=== PATIENT | male | born 1985 | race Caucasian/White ===

== ENCOUNTER 2018-11-09 18:10 | Emergency (ER) | payer MEDICAID ==
[~2018-11-09] VITALS: Ht 172.7 cm; Wt 70.0 kg
[~2018-11-09 18:10] MED LIST: FLO0.4C PO
[2018-11-09 18:27] VITALS: BP 114/80
[2018-11-09 18:43] LABS: CLARITY,URINE CLOUDY (Clear); COLOR,URINE RED (Yellow); GLUCOSE, URINE NEGATIVE (Neg); KETONES,URINE NEGATIVE (Neg); OCCULT BLOOD,URINE LARGE (Neg); UROBILINOGEN,URINE 0.2 E.U/dL (0.2-1.0)
[2018-11-09 18:55] LABS: LEUKOCYTE ESTERASE ,URINE NEGATIVE (Neg); NITRITES, URINE NEGATIVE (Neg); PROTEIN,URINE 30 mg/dl (Neg)
[2018-11-09 18:58] LABS: UA COLLECTION TYPE VOIDED
[2018-11-09 19:05] LABS: BACTERIA,URINE NONE SEEN /HPF (Neg); MUCUS STRANDS MANY /LPF (Neg); RBC,URINE TNTC /HPF (0-2); SQUAMOUS EPITHELIAL CELL,UR NONE SEEN /LPF (FEW); WBC,URINE 0-4 /HPF (0-4)
[2018-11-09] MEDS ORDERED: oxyCODONE/APAP 5-325mg tablet PO ONE (19:55)
[2018-11-09] MEDS ORDERED: OXYC-145 PO (21:05)
== END 2018-11-09 21:23 | disposition home or self-care (01) ==
LOC: ER 18:11
DX: N20.0 Calculus of kidney (principal); Z87.442 Personal history of urinary calculi; Z79.899 Other long term (current) drug therapy
CPT/HCPCS: 74176; 81001; 99284

== ENCOUNTER 2018-11-19 21:38 | Emergency (ER) | payer MEDICAID ==
[~2018-11-19] VITALS: Ht 172.7 cm; Wt 72.7 kg
[~2018-11-19 21:38] MED LIST changes: +OXYC-145 PO
[2018-11-19 21:42] VITALS: BP 117/63
[2018-11-19] MEDS ORDERED: PENI500T2 PO (22:14)
[2018-11-19] MEDS ORDERED: penicillin V potassium 500mg tablet PO ONE (22:15)
== END 2018-11-19 22:30 | disposition home or self-care (01) ==
LOC: ER 21:38
DX: K04.7 Periapical abscess without sinus (principal); Z87.442 Personal history of urinary calculi; Z79.899 Other long term (current) drug therapy
CPT/HCPCS: 41800; 99283

== ENCOUNTER 2019-06-03 16:49 | Emergency (ER) | payer MEDICAID ==
[~2019-06-03] VITALS: Ht 172.7 cm; Wt 54.4 kg
[~2019-06-03 16:49] MED LIST changes: -FLO0.4C PO
[2019-06-03 17:12] VITALS: BP 118/83
[2019-06-03] MEDS ORDERED: ipratropium/albuterol 3ml nebule NEB ONE (17:25)
[2019-06-03] MEDS ORDERED: predniSONE 20 mg tablet PO ONE (17:25)
[2019-06-03] MEDS ORDERED: AMOX-100 PO (17:47)
[2019-06-03] MEDS ORDERED: AMOX500C2 PO (17:50)
[2019-06-03] MEDS ORDERED: AZIT500T PO (17:50)
[2019-06-03] MEDS ORDERED: ALBU8HFA PO (17:52)
[2019-06-03] MEDS ORDERED: PRED20TA PO (17:55)
== END 2019-06-03 18:02 | disposition home or self-care (01) ==
LOC: ER 16:49
DX: J40 Bronchitis, not specified as acute or chronic (principal); K08.89 Other specified disorders of teeth and supporting structures; J18.9 Pneumonia, unspecified organism; Z87.442 Personal history of urinary calculi; Z79.899 Other long term (current) drug therapy
CPT/HCPCS: 71045; 99283; J7512; 94760

== ENCOUNTER 2019-11-16 13:21 | Emergency (ER) | payer MEDICAID ==
[~2019-11-16] VITALS: Ht 172.7 cm; Wt 70.5 kg
[2019-11-16 14:15] LABS: BASOPHILS % (AUTO) 0.4 % (0-1); EOSINOPHILS # (AUTO) 0.1 X10'3 (0-0.9); EOSINOPHILS % (AUTO) 1.5 % (0-6); HEMATOCRIT 42.7 % (42.0-52.0); HEMOGLOBIN 14.7 g/dl (14.0-17.9); LYMPHOCYTES # (AUTO) 1.7 X10'3 (1.1-4.8); LYMPHOCYTES % (AUTO) 34.2 % (21-51); MEAN CORPUSCULAR HEMOGLOBIN 31.7 PG (27.0-31.0); MEAN CORPUSCULAR HGB CONC 34.5 g/dL (33.0-36.5); MEAN PLATELET VOLUME 8.6 FL (7.4-10.4); MONOCYTES # (AUTO) 0.4 X10'3 (0-0.9); MONOCYTES % (AUTO) 8.7 % (2-12); NEUTROPHILS # (AUTO) 2.8 X10'3 (1.8-7.7); NEUTROPHILS % (AUTO) 55.2 % (42-75); PLATELET COUNT 222 X10'3 (140-440); RED BLOOD COUNT 4.64 X10'6 (4.70-6.10); RED CELL DISTRIBUTION WIDTH 12.4 % (11.5-14.5); WHITE BLOOD COUNT 5.1 X10'3 (4.5-11.0)
[2019-11-16 14:30] LABS: ALANINE AMINOTRANSFERASE 16 U/L (12-78); ALBUMIN 4.4 G/DL (3.4-5.0); ALBUMIN/GLOBULIN RATIO 1.3 (1.1-1.5); ALKALINE PHOSPHATASE 72 IU/L (46-116); ANION GAP 8 (8-16); ASPARTATE AMINO TRANSFERASE 20 U/L (10-37); BILIRUBIN,TOTAL 0.5 MG/DL (0.1-1.0); BLOOD UREA NITROGEN 11 MG/DL (7-18); BUN/CREATININE RATIO 11.3 (5.4-32.0); CALCIUM 8.8 MG/DL (8.5-10.1); CHLORIDE 103 MMOL/L (99-107); CREATININE 0.97 MG/DL (0.60-1.10); GLUCOSE 95 MG/DL (70-104); POTASSIUM 3.8 MMOL/L (3.5-5.1); SODIUM 139 MMOL/L (135-145); TOTAL CARBON DIOXIDE 27.8 MMOL/L (24-32); TOTAL PROTEIN 7.8 G/DL (6.4-8.2); eGFR 90 ML/MIN
[2019-11-16] MEDS ORDERED: normal saline 1000ML IV soln IVB ONE (14:35)
[2019-11-16] MEDS ORDERED: ketorolac tromethamine 15mg/ml inj. IV ONE (14:35)
[2019-11-16 15:16] LABS: CLARITY,URINE CLEAR (Clear); COLOR,URINE STRAW (Yellow); GLUCOSE, URINE NEGATIVE (Neg); KETONES,URINE NEGATIVE (Neg); LEUKOCYTE ESTERASE ,URINE NEGATIVE (Neg); NITRITES, URINE NEGATIVE (Neg); OCCULT BLOOD,URINE NEGATIVE (Neg); PH,URINE 7.5 (4.8-8.0); PROTEIN,URINE NEGATIVE (Neg); UROBILINOGEN,URINE 0.2 E.U/dL (0.2-1.0)
[2019-11-16 15:18] LABS: UA COLLECTION TYPE CLN CATCH MIDSTREAM
[2019-11-16 15:56] VITALS: BP 117/72
== END 2019-11-16 15:53 | disposition home or self-care (01) ==
LOC: ER 13:22
DX: M54.5 Low back pain (principal); R31.9 Hematuria, unspecified; R10.9 Unspecified abdominal pain; F17.200 Nicotine dependence, unspecified, uncomplicated; Z87.442 Personal history of urinary calculi; Z79.899 Other long term (current) drug therapy; R30.0 Dysuria
CPT/HCPCS: 36415; 76775; 80053; 81003; 85025; 96374; 99284; J1885; J7030

== ENCOUNTER 2020-12-22 09:51 | Emergency (ER) | payer MEDICAID ==
[~2020-12-22] VITALS: Ht 175.3 cm; Wt 68.2 kg
[2020-12-22 09:58] VITALS: BP 138/68
[2020-12-22] MEDS ORDERED: LIDOcaine 40mg/ml topical solution MM ONE (10:10)
[2020-12-22] MEDS ORDERED: AMOX-422 PO (10:19)
[2020-12-22] MEDS ORDERED: LIDOCAINE 2% 5 ML JELLY.ML. tube MM ONE (10:35)
== END 2020-12-22 11:29 | disposition home or self-care (01) ==
LOC: ER 09:51
DX: K04.7 Periapical abscess without sinus (principal); K02.9 Dental caries, unspecified; K08.89 Other specified disorders of teeth and supporting structures; Z87.442 Personal history of urinary calculi; Z79.2 Long term (current) use of antibiotics; Z79.899 Other long term (current) drug therapy
CPT/HCPCS: 41800; 99284

== ENCOUNTER 2021-05-15 02:12 | Emergency (ER) | payer MEDICAID ==
[~2021-05-15] VITALS: Ht 172.7 cm; Wt 52.9 kg
[2021-05-15] MEDS ORDERED: amox tr/potassium clavulanate 875/125mg TAB PO ONE (02:45)
[2021-05-15] MEDS ORDERED: AMOX-422 PO (02:46)
[2021-05-15 03:16] VITALS: BP 119/74
== END 2021-05-15 03:19 | disposition home or self-care (01) ==
LOC: ER 02:13
DX: K02.9 Dental caries, unspecified (principal); K08.89 Other specified disorders of teeth and supporting structures; Z87.442 Personal history of urinary calculi; Z79.2 Long term (current) use of antibiotics; Z79.899 Other long term (current) drug therapy
CPT/HCPCS: 99283

== ENCOUNTER 2022-03-03 19:32 | Emergency (ER) | payer MEDICAID ==
[~2022-03-03] VITALS: Ht 172.7 cm; Wt 68.2 kg
[2022-03-03 20:11] VITALS: BP 139/73
[2022-03-03] MEDS ORDERED: tetanus & diphtheria toxoid (Td) vaccine 0.5ml IMVAC ONE (21:05)
[2022-03-03] MEDS ORDERED: TETanus/Pertussis (Acell)/Diphther VAC/PF (Tdap-Adult) 0.5ml syringe IMVAC ONE (21:10)
== END 2022-03-03 21:57 | disposition home or self-care (01) ==
LOC: ER 19:33
DX: S61.211A Laceration without foreign body of left index finger without damage to nail, initial encounter (principal); Z87.442 Personal history of urinary calculi; Z79.899 Other long term (current) drug therapy; W45.8XXA Other foreign body or object entering through skin, initial encounter; Y93.89 Activity, other specified; Y92.89 Other specified places as the place of occurrence of the external cause; Y99.8 Other external cause status
CPT/HCPCS: 12001; 90471; 90715; 99283

== ENCOUNTER 2023-05-20 02:14 | Emergency (ER) | payer SELFPAY ==
[~2023-05-20] VITALS: Ht 172.7 cm; Wt 70.5 kg
[2023-05-20 02:19] VITALS: TEMP 98.1
[2023-05-20 02:32] LABS: BASOPHILS % (AUTO) 0.5 % (0-1); EOSINOPHILS # (AUTO) 0.2 X10'3 (0-0.9); EOSINOPHILS % (AUTO) 1.9 % (0-6); HEMATOCRIT 43.3 % (42.0-52.0); HEMOGLOBIN 15.2 g/dl (14.0-17.9); MEAN CORPUSCULAR HEMOGLOBIN 31.4 PG (27.0-31.0); MEAN CORPUSCULAR VOLUME 89.8 FL (78-98); MEAN PLATELET VOLUME 8.4 FL (7.4-10.4); MONOCYTES # (AUTO) 0.7 X10'3 (0-0.9); MONOCYTES % (AUTO) 8.6 % (2-12); NEUTROPHILS # (AUTO) 3.9 X10'3 (1.8-7.7); PLATELET COUNT 237 X10'3 (140-440); RED BLOOD COUNT 4.82 X10'6 (4.70-6.10); RED CELL DISTRIBUTION WIDTH 12.9 % (11.5-14.5); WHITE BLOOD COUNT 7.8 X10'3 (4.5-11.0)
[2023-05-20 02:45] LABS: ALANINE AMINOTRANSFERASE 28 U/L (12-78); ALBUMIN 4.6 G/DL (3.4-5.0); ALBUMIN/GLOBULIN RATIO 1.3 (1.1-1.5); ALKALINE PHOSPHATASE 94 IU/L (46-116); ANION GAP 8 (8-16); ASPARTATE AMINO TRANSFERASE 24 U/L (10-37); BILIRUBIN,TOTAL 0.4 MG/DL (0.1-1.0); BLOOD UREA NITROGEN 16 MG/DL (7-18); BUN/CREATININE RATIO 14.7 (10.0-20.0); CALCIUM 8.9 MG/DL (8.5-10.1); CHLORIDE 100 MMOL/L (99-107); CREATININE 1.09 MG/DL (0.60-1.10); GLUCOSE 112 MG/DL (70-104); POTASSIUM 3.5 MMOL/L (3.5-5.1); SODIUM 138 MMOL/L (135-145); TOTAL CARBON DIOXIDE 30.5 MMOL/L (24-32); TOTAL PROTEIN 8.2 G/DL (6.4-8.2); eCRCL 92 ML/MIN; eGFR 77 ML/MIN
[2023-05-20 02:53] LABS: PRO BRAIN NATRIURETIC PEPTIDE < 30 PG/ML (0-125)
[2023-05-20 03:06] VITALS: BP 130/62; PULSE 72; RESP 16; O2SAT 97
== END 2023-05-20 03:11 | disposition home or self-care (01) ==
LOC: ER 02:15
DX: F41.0 Panic disorder [episodic paroxysmal anxiety] (principal); Z79.899 Other long term (current) drug therapy
CPT/HCPCS: 36415; 80053; 83880; 84484; 85025; 93005; 99284

== ENCOUNTER 2023-09-01 13:55 | Emergency (ER) | payer SELFPAY ==
[~2023-09-01] VITALS: Ht 172.7 cm; Wt 68.0 kg
[2023-09-01 14:31] LABS: BASOPHILS % (AUTO) 0.4 % (0-1); EOSINOPHILS # (AUTO) 0.1 X10'3 (0-0.9); EOSINOPHILS % (AUTO) 2.1 % (0-6); HEMATOCRIT 42.5 % (42.0-52.0); HEMOGLOBIN 14.4 g/dl (14.0-17.9); LYMPHOCYTES # (AUTO) 1.7 X10'3 (1.1-4.8); LYMPHOCYTES % (AUTO) 30.9 % (21-51); MEAN CORPUSCULAR HEMOGLOBIN 30.9 PG (27.0-31.0); MEAN CORPUSCULAR VOLUME 91.1 FL (78-98); MEAN PLATELET VOLUME 8.8 FL (7.4-10.4); MONOCYTES # (AUTO) 0.5 X10'3 (0-0.9); MONOCYTES % (AUTO) 8.5 % (2-12); NEUTROPHILS # (AUTO) 3.1 X10'3 (1.8-7.7); NEUTROPHILS % (AUTO) 58.1 % (42-75); PLATELET COUNT 223 X10'3 (140-440); RED BLOOD COUNT 4.67 X10'6 (4.70-6.10); RED CELL DISTRIBUTION WIDTH 12.9 % (11.5-14.5); WHITE BLOOD COUNT 5.4 X10'3 (4.5-11.0)
[2023-09-01 14:49] LABS: ALBUMIN 4.2 G/DL (3.4-5.0); ANION GAP 9 (8-16); BLOOD UREA NITROGEN 11 MG/DL (7-18); BUN/CREATININE RATIO 12.2 (10.0-20.0); CALCIUM 8.4 MG/DL (8.5-10.1); CHLORIDE 103 MMOL/L (99-107); GLUCOSE 93 MG/DL (70-104); POTASSIUM 3.7 MMOL/L (3.5-5.1); PRO BRAIN NATRIURETIC PEPTIDE < 30 PG/ML (0-125); SODIUM 139 MMOL/L (135-145); TOTAL CARBON DIOXIDE 27.3 MMOL/L (24-32); eCRCL 110 ML/MIN; eGFR > 90 ML/MIN
[2023-09-01 16:48] VITALS: BP 102/68; PULSE 64; RESP 15; TEMP 98.3; O2SAT 100
== END 2023-09-01 18:31 | disposition left against medical advice (07) ==
LOC: ER 13:55
DX: R06.02 Shortness of breath (principal); Z53.21 Procedure and treatment not carried out due to patient leaving prior to being seen by health care provider
CPT/HCPCS: 36415; 71045; 80048; 83880; 84484; 85025; 93005

== ENCOUNTER 2024-02-03 02:32 | Emergency (ER) | payer MEDICAID ==
[~2024-02-03] VITALS: Ht 175.3 cm; Wt 150.0 kg
[2024-02-03 04:46] LABS: BILIRUBIN,URINE NEGATIVE (Neg); CLARITY,URINE CLEAR (Clear); COLOR,URINE YELLOW (Yellow); GLUCOSE, URINE NEGATIVE (Neg); KETONES,URINE NEGATIVE (Neg); LEUKOCYTE ESTERASE ,URINE NEGATIVE (Neg); NITRITES, URINE NEGATIVE (Neg); OCCULT BLOOD,URINE NEGATIVE (Neg); PH,URINE 6.5 (4.8-8.0); PROTEIN,URINE NEGATIVE (Neg); UROBILINOGEN,URINE 0.2 E.U/dL (0.2-1.0)
[2024-02-03 04:51] LABS: UA COLLECTION TYPE NON-SPECIFIED
[2024-02-03 05:04] LABS: URINE AMPHETAMINE SCREEN NEGATIVE (Neg); URINE BARBITUATE SCREEN NEGATIVE (Neg); URINE BENZODIAZEPINES SCREEN NEGATIVE (Neg); URINE CANNABINOID SCREEN NEGATIVE (Neg); URINE COCAINE SCREEN NEGATIVE (Neg); URINE METHADONE SCREEN NEGATIVE (Neg); URINE OPIATE SCREEN NEGATIVE (Neg); URINE PHENCYCLIDINE SCREEN NEGATIVE (Neg)
[2024-02-03] MEDS: aspirin 81mg tab.chew PO ONE (05:32)
[2024-02-03 05:37] VITALS: BP 118/68; PULSE 77; RESP 16; TEMP 98.1; O2SAT 98
== END 2024-02-03 05:39 | disposition home or self-care (01) ==
LOC: ER 02:33
DX: R20.2 Paresthesia of skin (principal); F41.9 Anxiety disorder, unspecified; Z87.442 Personal history of urinary calculi; Z79.899 Other long term (current) drug therapy
CPT/HCPCS: 80305; 81003; 99283

== ENCOUNTER 2024-04-14 16:19 | Emergency (ER) | payer SELFPAY ==
[2024-04-14 16:28] VITALS: BP 198/60; PULSE 87; RESP 18; TEMP 97.2; O2SAT 100
== END 2024-04-14 18:33 | disposition left against medical advice (07) ==
LOC: ER 16:20
DX: F41.9 Anxiety disorder, unspecified (principal); Z53.21 Procedure and treatment not carried out due to patient leaving prior to being seen by health care provider

== ENCOUNTER 2024-11-19 02:42 | Emergency (ER) | payer BC ==
[~2024-11-19] VITALS: Ht 172.7 cm; Wt 69.8 kg
--- NOTE | 2024-11-19 03:06 | ELECTROCARDIOGRAPH REPORT ---
[facility] Test Date: 2024-11-19 Test Time: 02:49:25 Pat Name: SHAMEKA COX Department: EMERGENCY ROOM Patient ID: [id number] Room: Gender: M Manager Database: DOROTHEA BARRY : 1985 Requested By: LIZET SIERRA Order Number: [id number] Reading MD: Measurements Intervals [place] Rate: 78 P: 91 ND: 178 QRS: 213 QRSD: 118 T: 25 QT: 398 QTc: 454 Interpretive Statements Sinus rhythm Nonspecific intraventricular conduction delay ST elev, probable normal early repol pattern Baseline wander in lead(s) V6 Please click the below link to view image of tracing.
--- NOTE | 2024-11-19 03:26 | Physician Documentation ---
History of Present Illness ~ Chief Complaint: Palpitations Stated Complaint: ANXIETY Time Seen by MD: 03:14 Primary Medical Doctor: Ricardo BOLAÑOS This is a 39-year-old male presenting for an unusual sensation in his chest. Patient states that this happened to him from time to time sometimes when he is dozing off to go to sleep. He states that he usually works until midnight and then he came home tonight and started watching a movie with his daughter. Prior to this he had a little bit of anxiety and took some of his Atarax that he has as needed. He sat down to watch a movie with his daughter when he started to doze off. He suddenly felt this strain sensation in his chest kind of like a racing heart. It woke him up and he got very concerned. He denies any chest pain but does endorse some tightness in his chest. Otherwise denies any shortness of breath, nausea, dizziness or any other associated symptoms. Medication Reconciliation Allergies: Coded Allergies: No Known Allergies (Unverified , 11/19/24) Scheduled Oxycodone HCl/Acetaminophen (Percocet 5-325 mg Tablet), 1 TAB PO Q12H Past Medical History Past Medical History: No Pertinent History, Kidney Stones, Anxiety Past Surgical History: no surgical history Alcohol Use: None Drug Use: none Lives with: Family Lives In: Home Occupation: employed Review of Systems All Other Systems at this time: Reviewed and Negative Physical Exam Vital Signs: Temperature: 97.7, Source: Temporal, Heart Rate: 76, Respiratory Rate: 16, BP: 125/74, Pulse Oximetry: 100, Weight: 69.800 Oxygen Flow Rate: 0 Physical Exam I have reviewed the triage vitals. CONST: Well developed and well nourished. In no acute distress HENT: Head Atraumatic EYES: Pupils are equal, round and reactive to light. Normal conjunctiva NECK: Normal range of motion. Supple. CARDIO: Normal rate and regular rhythm. No murmurs, rubs, or gallops. S1, S2. PULM/CHEST: No respiratory distress. Lungs clear to auscultation. No wheeze ABD: Soft and nontender. Nondistended. Bowel sounds normal. No guarding. : Exam deferred MSK: No edema. No deformity. NEURO: Alert and oriented to person, place and time. Moving all extremities SKIN: Warm and dry. PSYCH: Normal mood and affect. Good eye contact. Progress Results/Orders Results/Orders Completed Orders - LIZET SIERRA MD Electrocardiogram (11/19/24 03:05) Cbc/Diff (11/19/24 03:23) MG (11/19/24 03:23) BMP (11/19/24 03:23) Hs Troponin I W Calculations (11/19/24 03:23) Vital Signs 11/19/24 11/19/24 02:56 03:22 Temp 97.7 Pulse 76 Resp 16 16 B/P (MAP) 125/74 Pulse Ox 100 O2 Flow Rate 0 Laboratory Tests Test 11/19/24 03:30 White Blood Count 5.6 Red Blood Count 4.48 L Hemoglobin 13.7 L Hematocrit 38.6 L Mean Corpuscular Volume 86.3 Mean Corpuscular Hemoglobin 30.6 Mean Corpuscular Hemoglobin Concent 35.5 Red Cell Distribution Width 13.1 Platelet Count 251 Mean Platelet Volume 8.0 Neutrophils (%) (Auto) 61.0 Lymphocytes (%) (Auto) 28.8 Monocytes (%) (Auto) 8.5 Eosinophils (%) (Auto) 1.2 Basophils (%) (Auto) 0.5 Neutrophils # (Auto) 3.4 Lymphocytes # (Auto) 1.6 Monocytes # (Auto) 0.5 Eosinophils # (Auto) 0.1 Basophils # (Auto) 0.0 CBC Comment Sodium Level 139 Potassium Level 3.6 Chloride Level 104 Carbon Dioxide Level 29.6 Anion Gap 5 L Blood Urea Nitrogen 9 Creatinine 1.20 H Estimated GFR/1.73 m2 68 BUN/Creatinine Ratio 7.5 L Glucose Level 97 Calcium Level 8.5 Magnesium Level 2.0 Troponin I High Sensitivity 4 Albumin 4.3 Chemistry Comments EKG/XRAY/CT/US/VASC/MRI EKG : Additional Comment EKG as interpreted by ED indicating normal sinus rhythm with a rate of 78 beats per minute, normal axis, no ischemia Medical Decision Making Additional Information 39-year-old male presenting with anxiety and palpitations. His workup is negative aside from a minimally elevated creatinine level of 1.2. The patient states that he takes creatinine and this would explain this slight elevation of the creatinine. His remainder of his lab work is otherwise unremarkable. I believe that his symptoms were likely related to some anxiety and also lack of sleep in addition to the fact that he drank some energy drinks yesterday. The patient was monitored in the ED on the property assessment monitor and remained asymptomatic with a normal cardiac rhythm the entire time. EKG was also unremarkable. At this point in time he is stable and safe to be discharged home. I advised the patient to drink plenty of fluids and get more sleep and to monitor symptoms for recurrence. Should they keep recurring he was advised that he needs to follow up with a order fulfillment specialist. Return to the ED with any acutely worsening symptoms. Departure Disposition: HOME / SELF CARE / HOMELESS Impression: Primary Impression: Palpitations Additional Impression: Anxiety Condition: Stable Discharge Instructions: Palpitations, [id number] Referrals: NO PRIMARY CARE PROVIDER (PCP) Signature Scribe Signature: 1 Attestation: 1 LIZET SIERRA MD Nov 19, 2024 03:26
[2024-11-19 03:46] LABS: MEAN PLATELET VOLUME 8.0 FL (7.4-10.4); RED CELL DISTRIBUTION WIDTH 13.1 % (11.5-14.5)
[2024-11-19 03:50] LABS: CREATININE 1.20 MG/DL (0.60-1.10); TOTAL CARBON DIOXIDE 29.6 MMOL/L (24-32); eCRCL 82 ML/MIN; eGFR 68 ML/MIN
[2024-11-19 04:30] VITALS: BP 116/68; PULSE 72; RESP 16; TEMP 97.7; O2SAT 99
== END 2024-11-19 04:32 | disposition home or self-care (01) ==
LOC: ER 02:44
DX: R00.2 Palpitations (principal); F41.9 Anxiety disorder, unspecified; R06.02 Shortness of breath; Z79.899 Other long term (current) drug therapy
CPT/HCPCS: 36415; 80048; 83735; 84484; 85025; 93005; 99284

== ENCOUNTER 2025-02-11 01:02 | Emergency (ER) | payer BC ==
[~2025-02-11] VITALS: Ht 175.3 cm; Wt 73.0 kg
--- NOTE | 2025-02-11 01:22 | RADIOLOGY REPORT ---
CHEST RADIOGRAPH Indication: CP Technique: 1 view Comparison: DI CHEST,SINGLE VIEW on DOS: 09/01/23, CHEST,SINGLE VIEW on DOS: 06/03/19 FINDINGS: Lines and Tubes: None. Lungs/Pleura: No focal consolidation, pleural effusion or pneumothorax. Soft tissue summation of the right lower lung. Cardiomediastinum: Unremarkable. Other: No acute osseous abnormality. IMPRESSION: 1. No acute cardiopulmonary abnormality.
--- NOTE | 2025-02-11 01:26 | Physician Documentation ---
History of Present Illness ~ Chief Complaint: Chest Pain Stated Complaint: CHEST DISCOMFORT X 30 MIN Time Seen by MD: 01:10 Primary Medical Doctor: Ricardo BOLAÑOS Patient presents to the emergency room with chief complaint of chest tightness. He was seen here earlier this month with similar complaints. He states he came home from working gone into bed and felt some palpitations and tightness therefore came in to be evaluated. Patient does have history of anxiety. He does have a primary care but denies any cardiac workup previously. He does not smoke and denies history of blood pressure cholesterol or diabetes but does state that has mother was diagnosed with coronary artery disease in her 60s. Patient's symptoms have resolved. Medication Reconciliation Allergies: Coded Allergies: No Known Allergies (Unverified , 02/11/25) Scheduled Oxycodone HCl/Acetaminophen (Percocet 5-325 mg Tablet), 1 TAB PO Q12H Past Medical History Past Medical History: No Pertinent History, Kidney Stones, Anxiety Past Surgical History: no surgical history Alcohol Use: None Drug Use: none Lives with: Family Lives In: Home Occupation: employed Review of Systems ROS All review of systems negative except as per HPI Physical Exam Vital Signs: Heart Rate: 77, Respiratory Rate: 15, BP: 132/79, Pulse Oximetry: 99, Weight: 73.000 Physical Exam General: Patient is awake, alert, oriented x4 in no acute distress. Anxious Head: Normocephalic and atraumatic. Eyes: Conjunctival normal. EOMI. PERRL. ENT: Mucous membranes moist. Neck: Supple, trachea is midline. Chest: Clear to auscultation bilaterally without rales, rhonchi, or wheezes. There is no accessory muscle use or retractions. Cardiac: RRR without murmurs, gallops, or rubs. Abd: Soft, nondistended, nontender, with normoactive bowel sounds. No guarding, rebound, or rigidity. Extremities: Normal strength. Normal range of motion. No deformities or edema. No calf tenderness to palpation Progress Results/Orders Results/Orders Orders - ADAL CHANDRA MD Chest,Single View (02/11/25 01:12) Monitor (02/11/25 01:07) Saline Lock (02/11/25 01:07) Oxygen (02/11/25 01:07) BMP (02/11/25 01:07) PBNP (02/11/25 01:07) Electrocardiogram (02/11/25 01:07) Hs Troponin I W Calculations (02/11/25 03:07) Hs Troponin I W Calculations (02/11/25 04:07) Completed Orders - ADAL CHANDRA MD Chest,Single View (02/11/25 01:12) Cbc/Diff (02/11/25 01:07) Hs Troponin I W Calculations (02/11/25 01:07) Vital Signs 02/11/25 02/11/25 02/11/25 01:04 01:17 01:49 Pulse 77 71 Resp 15 10 12 B/P (MAP) 132/79 143/88 (106) Pulse Ox 99 98 Laboratory Tests Test 02/11/25 01:17 White Blood Count 5.9 Red Blood Count 4.71 Hemoglobin 14.3 Hematocrit 40.7 L Mean Corpuscular Volume 86.6 Mean Corpuscular Hemoglobin 30.4 Mean Corpuscular Hemoglobin Concent 35.1 Red Cell Distribution Width 12.5 Platelet Count 245 Mean Platelet Volume 8.2 Neutrophils (%) (Auto) 50.5 Lymphocytes (%) (Auto) 37.6 Monocytes (%) (Auto) 8.9 Eosinophils (%) (Auto) 2.5 Basophils (%) (Auto) 0.5 Neutrophils # (Auto) 3.0 Lymphocytes # (Auto) 2.2 Monocytes # (Auto) 0.5 Eosinophils # (Auto) 0.1 Basophils # (Auto) 0.0 CBC Comment Sodium Level 141 Potassium Level 3.5 Chloride Level 103 Carbon Dioxide Level 30.5 Anion Gap 8 Blood Urea Nitrogen 7 Creatinine 1.21 H Estimated GFR/1.73 m2 67 BUN/Creatinine Ratio 5.8 L Glucose Level 90 Calcium Level 8.6 Troponin I High Sensitivity 4 Albumin 4.3 Chemistry Comments EKG/XRAY/CT/US/VASC/MRI EKG : Additional Comment EKG interpreted by myself shows time of 0106, rate 72, sinus rhythm, borderline right axis deviation, nonspecific ST-T changes Chest X-Ray : Additional Comments Exam: CHEST,SINGLE VIEW CHEST RADIOGRAPH Indication: CP Technique: 1 view Comparison: DI CHEST,SINGLE VIEW on DOS: 09/01/23, CHEST,SINGLE VIEW on DOS: 06/03/19 FINDINGS: Lines and Tubes: None. Lungs/Pleura: No focal consolidation, pleural effusion or pneumothorax. Soft tissue summation of the right lower lung. Cardiomediastinum: Unremarkable. Other: No acute osseous abnormality. IMPRESSION: 1. No acute cardiopulmonary abnormality. Medical Decision Making Additional information obtaine: old records Findings Patient presents to the emergency room with chest discomfort as per HPI. Differentials include but are not limited to anxiety ACS pulmonary embolism heart failure therefore emergent labs and imaging indicated. Labs and imaging are reassuring. Patient's heart score is reassuring. The need to follow up with his doctor discussed. Patient is currently asymptomatic and he had not feel he requires investigation into pulmonary embolism. Heart Score: 0 Differential Dx:Considerations: Include: angina, aortic dissection, chest wall pain, cholelithiasis, CHF, costochondritis, esophageal reflux/spasm, gastritis, herpes zoster, myocardial infarction, pericarditis, pleuritis, pancreatitis, pneumonia, pneumothorax, pulmonary embolus, other Departure Disposition: 01 HOME / SELF CARE / HOMELESS Impression: Primary Impression: Chest pain Condition: Improved Discharge Instructions: Nonspecific Chest Pain, Adult Additional Instructions: Regarding your palpitations; ask your doctor for possible Holter monitor. Regarding your chest pain; ask your doctor about possible stress test Referrals: NO PRIMARY CARE PROVIDER (PCP) Signature Scribe Signature: No scribe Attestation: The note accurately reflects work and decisions made by me.Adal Chandra MD 02/11/25 02:06 ADAL CHANDRA MD Feb 11, 2025 01:26
[2025-02-11 01:38] LABS: MEAN PLATELET VOLUME 8.2 FL (7.4-10.4); RED CELL DISTRIBUTION WIDTH 12.5 % (11.5-14.5)
[2025-02-11 01:57] LABS: CREATININE 1.21 MG/DL (0.60-1.10); TOTAL CARBON DIOXIDE 30.5 MMOL/L (24-32); eCRCL 84 ML/MIN; eGFR 67 ML/MIN
[2025-02-11 02:05] LABS: PRO BRAIN NATRIURETIC PEPTIDE < 30 PG/ML (0-125)
[2025-02-11 02:12] VITALS: BP 119/72; PULSE 78; RESP 13; O2SAT 99
--- NOTE | 2025-02-11 07:19 | ELECTROCARDIOGRAPH REPORT ---
[facility] Test Date: 2025-02-11 Test Time: 01:06:10 Pat Name: SHAMEKA COX Department: EMERGENCY ROOM [id number] Room: Gender: M Piercer: FREDY : 1985 Requested By: CECE NAVA Order Number: [id number] Reading MD: Dr. Fly Almaraz Measurements Intervals [place] Rate: 72 P: 85 [place]: 178 QRS: 171 QRSD: 129 T: 29 QT: 411 QTc: 450 Interpretive Statements Sinus rhythm Nonspecific intraventricular conduction delay ST elevation suggests acute pericarditis Electronically Signed On 02-16-2025 20:45:[address] Fly Almaraz Please click the below link to view image of tracing.
== END 2025-02-11 02:16 | disposition home or self-care (01) ==
LOC: ER 01:03
DX: R07.9 Chest pain, unspecified (principal); F41.9 Anxiety disorder, unspecified; Z79.899 Other long term (current) drug therapy; Z87.442 Personal history of urinary calculi
CPT/HCPCS: 36415; 71045; 80048; 83880; 84484; 85025; 93005; 99285

== ENCOUNTER 2025-03-31 22:04 | Emergency (ER) | payer BC ==
[~2025-03-31] VITALS: Ht 175.3 cm; Wt 71.0 kg
--- NOTE | 2025-03-31 22:40 | ELECTROCARDIOGRAPH REPORT ---
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
[2025-03-31 23:00] VITALS: BP 117/82; PULSE 83; O2SAT 98
[2025-03-31 23:02] LABS: MEAN PLATELET VOLUME 8.1 FL (7.4-10.4); RED CELL DISTRIBUTION WIDTH 12.7 % (11.5-14.5)
[2025-03-31 23:15] VITALS: RESP 14
--- NOTE | 2025-03-31 23:16 | RADIOLOGY REPORT ---
CHEST RADIOGRAPH INDICATION: CP TECHNIQUE: Single frontal view of the chest was obtained COMPARISON: DI CHEST,SINGLE VIEW on DOS: 02/11/25, DI CHEST,SINGLE VIEW on DOS: 09/01/23, CHEST,SINGLE VIEW on DOS: 06/03/19 FINDINGS: Lungs and pleural spaces are clear. Cardiac silhouette and richar are within normal limits. Bones and soft tissues demonstrate no significant abnormality. IMPRESSION: No acute disease.
[2025-03-31 23:23] LABS: CREATININE 1.17 MG/DL (0.60-1.10); TOTAL CARBON DIOXIDE 32.9 MMOL/L (24-32); eCRCL 86 ML/MIN; eGFR 70 ML/MIN
[2025-03-31 23:25] LABS: PRO BRAIN NATRIURETIC PEPTIDE < 30 PG/ML (0-125)
--- NOTE | 2025-04-01 00:50 | Physician Documentation ---
History of Present Illness ~ Chief Complaint: Chest Pain Stated Complaint: SHOULDER/BACK PAIN Time Seen by MD: 00:33 Primary Medical Doctor: Ricardo BOLAÑOS Patient presents to the emergency room with 2-3 days of generalized body aches most prominent in his chest and back. No prior symptoms. Patient does endorse history of anxiety. He does state that he took a week off of work one-week ago secondary to sickness and since being back at work this past week he may have worked extra hard to catch up in his workouts. Taking ibuprofen for his symptoms. No fevers. Medication Reconciliation Allergies: Coded Allergies: No Known Allergies (Unverified , 03/31/25) Scheduled Oxycodone HCl/Acetaminophen (Percocet 5-325 mg Tablet), 1 TAB PO Q12H Past Medical History Past Medical History: No Pertinent History, Kidney Stones, Anxiety Past Surgical History: no surgical history Alcohol Use: None Drug Use: none Lives with: Family Lives In: Home Occupation: employed Review of Systems ROS All review of systems negative except as per HPI Physical Exam Vital Signs: Temperature: 97.6, Source: Temporal, Heart Rate: 83, Respiratory Rate: 15, BP: 117/82, Pulse Oximetry: 98, Weight: 71.000 Physical Exam General: Patient is awake, alert, oriented x4 in no acute distress and well appearing.~ Head: Normocephalic and atraumatic. Eyes: Conjunctival normal. EOMI. PERRL. ENT: Mucous membranes moist. Neck: Supple, trachea is midline. Chest: Clear to auscultation bilaterally without rales, rhonchi, or wheezes. There is no accessory muscle use or retractions. Tenderness to precordium Cardiac: RRR without murmurs, gallops, or rubs. Abd: Soft, nondistended, nontender, with normoactive bowel sounds. No guarding, rebound, or rigidity. Back: Tenderness to palpation to bilateral inferior trapezius muscles. Progress Results/Orders Results/Orders Orders - ADAL CHANDRA MD Chest,Single View (03/31/25 23:04) Monitor (03/31/25 22:35) Saline Lock (03/31/25 22:35) Oxygen (03/31/25 22:35) Hs Troponin I W Calculations (04/01/25 00:35) Hs Troponin I W Calculations (04/01/25 01:35) Completed Orders - ADAL CHANDRA MD Chest,Single View (03/31/25 23:04) Cbc/Diff (03/31/25 22:35) BMP (03/31/25 22:35) PBNP (03/31/25 22:35) Electrocardiogram (03/31/25 22:35) Hs Troponin I W Calculations (03/31/25 22:35) Vital Signs 03/31/25 22:32 Temp 97.6 Pulse 83 Resp 15 B/P (MAP) 117/82 Pulse Ox 98 Laboratory Tests Test 03/31/25 22:44 White Blood Count 6.0 Red Blood Count 4.73 Hemoglobin 14.0 Hematocrit 41.1 L Mean Corpuscular Volume 86.9 Mean Corpuscular Hemoglobin 29.7 Mean Corpuscular Hemoglobin Concent 34.2 Red Cell Distribution Width 12.7 Platelet Count 289 Mean Platelet Volume 8.1 Neutrophils (%) (Auto) 60.2 Lymphocytes (%) (Auto) 28.4 Monocytes (%) (Auto) 8.7 Eosinophils (%) (Auto) 2.2 Basophils (%) (Auto) 0.5 Neutrophils # (Auto) 3.6 Lymphocytes # (Auto) 1.7 Monocytes # (Auto) 0.5 Eosinophils # (Auto) 0.1 Basophils # (Auto) 0.0 CBC Comment Sodium Level 142 Potassium Level 3.6 Chloride Level 104 Carbon Dioxide Level 32.9 H Anion Gap 5 L Blood Urea Nitrogen 7 Creatinine 1.17 H Estimated GFR/1.73 m2 70 BUN/Creatinine Ratio 6.0 L Glucose Level 73 Calcium Level 8.6 Troponin I High Sensitivity 4 Pro-B-Type Natriuretic Peptide < 30 Albumin 4.2 Chemistry Comments EKG/XRAY/CT/US/VASC/MRI EKG : Additional Comment EKG interpreted by myself shows time of 06/04/2038, rate 70, sinus rhythm, normal axis, no ST changes Chest X-Ray : Additional Comments Exam: CHEST,SINGLE VIEW CHEST RADIOGRAPH INDICATION: CP TECHNIQUE: Single frontal view of the chest was obtained COMPARISON: DI CHEST,SINGLE VIEW on DOS: 02/11/25, DI CHEST,SINGLE VIEW on DOS: 09/01/23, CHEST,SINGLE VIEW on DOS: 06/03/19 FINDINGS: Lungs and pleural spaces are clear. Cardiac silhouette and richar are within normal limits. Bones and soft tissues demonstrate no significant abnormality. IMPRESSION: No acute disease. Medical Decision Making Additional information obtaine: old records Findings Patient presents to the emergency room for evaluation of generalized body aches. Differentials include but are not limited to viral syndrome, reactive arthritis, electrolyte disturbances, rhabdomyolysis. Labs were reassuring with no kidney injury and he had not feel patient requires a CK level. Troponins reassuring. 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 Ibuprofen and Tylenol suggested. Heart Score: 1 Differential Dx:Considerations: Include: angina, aortic dissection, chest wall pain, cholelithiasis, CHF, costochondritis, esophageal reflux/spasm, gastritis, herpes zoster, myocardial infarction, pericarditis, pleuritis, pancreatitis, pneumonia, pneumothorax, pulmonary embolus, other Departure Disposition: HOME / SELF CARE / HOMELESS Impression: Primary Impression: Body aches Additional Impression: Myalgia Condition: Stable Discharge Instructions: Nonspecific Chest Pain, Adult Additional Instructions: Follow up with your doctor if symptoms fail to improve. All your lab work today that has reassuring Referrals: NO PRIMARY CARE PROVIDER (PCP) Signature Scribe Signature: No scribe Attestation: The note accurately reflects work and decisions made by me.Adal Chandra MD 04/01/25 00:50 ADAL CHANDRA MD Apr 01, 2025 00:50
[2025-04-01 01:22] VITALS: TEMP 97.6
== END 2025-04-01 01:22 | disposition home or self-care (01) ==
LOC: ER 22:05
DX: M79.10 Myalgia, unspecified site (principal); F41.9 Anxiety disorder, unspecified; Z79.899 Other long term (current) drug therapy; Z87.442 Personal history of urinary calculi
CPT/HCPCS: 36415; 71045; 80048; 83880; 84484; 85025; 93005; 99285